=== PATIENT | female | born 1980 | race Caucasian/White ===

== ENCOUNTER 2024-05-28 03:29 | Emergency (ER) | payer OTHER, SELFPAY ==
[2024-05-28 03:44] VITALS: BP 148/100; PULSE 86; RESP 16; TEMP 36.3; TEMP 37; O2SAT 98; BMI 25.7; BMI 27.4
--- NOTE | 2024-05-28 04:16 | ED.GENADULT ---
HPI - General Adult General Chief complaint: General Medical Stated complaint: back spasms Time Seen by Provider: 05/28/24 04:16 Source: patient Mode of arrival: ambulatory Limitations: no limitations History of Present Illness ED Provider: parminder BRAR narrative: Patient has been having upper back pain for last 1 week getting worse no history of fibromyalgia or arthritis no chest pain no shortness a breath Related Data Previous Rx's ?Medication ?Instructions ?Recorded cyclobenzaprine 10 mg tablet 10 mg PO Q8H #20 tabs 05/28/24 ibuprofen 600 mg tablet 600 mg PO Q6H PRN fever or pain 05/28/24 #30 tabs Allergies Allergy/AdvReac Type Severity Reaction Status Date / Time No Known Allergies Allergy Mild UNKNOWN Verified 05/28/24 03:46 Review of Systems Review of Systems: Yes all other systems are reviewed and are negative [facility] Social History Social History Smoked in Last 30 Days: No Use of substances other than those prescribed or required for medical reasons: No Advance Directives: No Advance Directives Information Provided: Yes Do you have a plan to hurt others: No Plan Patient : No Physical Exam ED Vital Signs: Vital Signs - 24 hr 05/28/24 03:44 05/28/24 03:44 05/28/24 04:38 Temperature 97.4 F 98.6 F 97.4 F Pulse Rate 86 86 88 Respiratory Rate 16 16 16 Blood Pressure 148/100 H 148/100 H 127/101 H Pulse Oximetry 98 98 98 Oxygen Delivery Method Room Air Room Air Room Air BMI result Body Mass Index 27.4 Appearance: Alert. Oriented X3. No acute distress. Eyes: No pallor or icterus ENT: Pharynx normal. Oral Mucosa moist Neck: Normal inspection. Neck supple. CVS: Normal heart rate and rhythm. Pulses normal. Respiratory: No respiratory distress. Equal air entry bilateral, Abdomen: Soft and nontender. Bowel sounds are present, Skin: Skin warm and dry. Normal skin color. Normal skin turgor. Extremities: No lower extremity edema. No calf tenderness, tenderness bilateral trapezius Neuro: Oriented X 3. No motor deficit. Medications Administered Discontinued Medications Generic Name Dose Route Start Last Admin Trade Name Freq PRN Reason Stop Dose Admin Cyclobenzaprine HCl 10 mg 05/28/24 04:17 05/28/24 04:39 Cyclobenzaprine Hcl 10 Mg Tablet PO 05/28/24 04:18 10 mg ONCE ONE Administration Tramadol HCl 50 mg 05/28/24 04:17 05/28/24 04:39 Tramadol Hcl 50 Mg Tablet PO 05/28/24 04:18 50 mg ONCE ONE Administration Medical Decision Making Medical Decision Making MDM Narrative: Patient has upper back pain likely fibromyalgia Discharge Plan Discharge Clinical Impression: Fibromyalgia Patient Disposition: Home, Self-Care Instructions: Fibromyalgia (ED) Additional Instructions: Likely have fibromyalgia as the cause for the pain Take ibuprofen and muscle relaxant as prescribed Follow up with your PCP Prescriptions: New cyclobenzaprine 10 mg tablet 10 mg PO Q8H Qty: 20 0RF ibuprofen 600 mg tablet 600 mg PO Q6H PRN (Reason: fever or pain) Qty: 30 0RF Interventions: ED Discharge Assessment Last Done: 05/28/24 04:38 Discharge Date/Time: 05/28/24 04:41 Print Language: Mohawk
[2024-05-28 04:38] VITALS: BP 127/101; PULSE 88; RESP 16; TEMP 36.3; O2SAT 98
[2024-05-28] MEDS: traMADoL HCL 50 MG TABLET PO (04:39)
[2024-05-28] MEDS: Cyclobenzaprine HCl 10 MG TABLET PO (04:39)
== END 2024-05-28 04:41 | disposition home or self-care (01) ==
PROVIDERS: Emergency Provider Internal Medicine; PCP Internal Medicine
DX: M79.7 Fibromyalgia (principal)
CPT/HCPCS: 99283; 99284